=== PATIENT | female | born 1975 | race Caucasian/White ===

== ENCOUNTER 2017-09-11 16:20 | Emergency (ER) | payer OTHER ==
[~2017-09-11] VITALS: Wt 70.5 kg
--- NOTE | 2017-09-11 17:59 | ERD ---
ER Documentation Chief Complaint Chief Complaint lafleur, bodyaches, fever ROS All systems reviewed and are negative except as per history of present illness. Medications Home Meds Active Scripts Azithromycin* (Zithromax*) 250 Mg Tablet, 250 MG PO .HaliePACK DIRECTED, #6 TAB TAKE 500 MG (2 TABS) THE FIRST DAY THEN 250 MG (1 TAB) DAYS 2-5 Prov:BRAN HYDE PA-C 09/11/17 Allergies Allergies: Coded Allergies: No Known Allergy (Unverified , 02/03/14) PMhx/Soc History of Surgery: Yes (,cholesystectomy,appendectomy) Anesthesia Reaction: No Hx Neurological Disorder: No Hx Respiratory Disorders: No Hx Cardiac Disorders: No Hx Psychiatric Problems: No Hx Miscellaneous Medical Probl: No Hx Alcohol Use: No Hx Substance Use: No Hx Tobacco Use: No Smoking Status: Never smoker Physical Exam Vitals Vital Signs Date Time Temp Pulse Resp B/P Pulse Ox O2 Delivery O2 Flow Rate FiO2 09/11/17 19:13 98.8 90 20 142/78 97 Room Air 09/11/17 16:26 99.5 94 20 161/77 98 Physical Exam Const: [] Head: Atraumatic Eyes: Normal Conjunctiva ENT: Normal External Ears, Nose and Mouth. Neck: Full range of motion..~ No meningismus. Resp: Clear to auscultation bilaterally Cardio: Regular rate and rhythm, no murmurs Abd: Soft, non tender, non distended. Normal bowel sounds Skin: No petechiae or rashes Back: No midline or flank tenderness Ext: No cyanosis, or edema Neur: Awake and alert Psych: Normal Mood and Affect Results 24 hrs Laboratory Tests Test 09/11/17 17:36 Bedside Urine pH (LAB) 5.5 Bedside Urine Protein (LAB) Negative Bedside Urine Glucose (UA) Negative Bedside Urine Ketones (LAB) Negative Bedside Urine Blood Negative Bedside Urine Nitrite (LAB) Negative Bedside Urine Leukocyte Esterase (L Negative Current Medications Medications (Trade) Dose Ordered Sig/Troy Route PRN Reason Start Time Stop Time Status Last Admin Dose Admin Ceftriaxone Sodium (Rocephin) 250 mg ONCE ONCE IM 09/11/17 18:00 09/11/17 18:20 DC Azithromycin (Zithromax) 1,000 mg ONCE ONCE PO 09/11/17 18:00 09/11/17 18:20 DC Ranitidine HCl (Zantac) 150 mg ONCE ONCE PO 09/11/17 18:00 09/11/17 18:20 HEIDI JAIN Sep 11, 2017 17:59
[2017-09-11] MEDS ORDERED: AZITHROMYCIN 250 MG TAB PO ONE (18:00)
[2017-09-11] MEDS ORDERED: RANITIDINE 150 MG TAB PO ONE (18:00)
[2017-09-11] MEDS ORDERED: CEFTRIAXONE 250 MG INJ IM ONE (18:00)
--- NOTE | 2017-09-11 18:07 | RADRPT ---
PROCEDURE: Chest x-ray CLINICAL INDICATION: Cough TECHNIQUE: Chest single view COMPARISON: None FINDINGS: The heart is normal in size. The pulmonary vessels are normal in caliber. The lungs are clear. Th e costophrenic angles are sharp. The visualized bony thorax is unremarkable. IMPRESSION: No acute cardiopulmonary disease. RPTAT: HH .Josafat Recinos MD, Date Time Electronically viewed and signed by .Josafat Recinos MD, MD on 09/11/2017 18:06 .W/
[2017-09-11] MEDS ORDERED: AZIT250T94 PO (19:09)
[2017-09-11 19:13] VITALS: BP 142/78; PULSE 90; RESP 20; TEMP 98.8
--- NOTE | 2017-09-11 21:35 | ERD ---
ER Documentation Chief Complaint Chief Complaint lafleur, bodyaches, fever HPI 42-year-old female complaining of fever, body aches, cough, sore throat, headache 2 weeks. Patient states she had documented fevers of 101. Tylenol was taken 7 hours ago. Denies shortness of breath. Denies sick contacts. Denies neck pain or stiffness. Denies vomiting. Denies abdominal pain. ROS All systems reviewed and are negative except as per history of present illness. Medications Home Meds Active Scripts Azithromycin* (Zithromax*) 250 Mg Tablet, 250 MG PO .ZPACK DIRECTED, #6 TAB TAKE 500 MG (2 TABS) THE FIRST DAY THEN 250 MG (1 TAB) DAYS 2-5 Prov:BRAN HYDE PA-C 09/11/17 Allergies Allergies: Coded Allergies: No Known Allergy (Unverified , 02/03/14) PMhx/Soc History of Surgery: Yes (,cholesystectomy,appendectomy) Anesthesia Reaction: No Hx Neurological Disorder: No Hx Respiratory Disorders: No Hx Cardiac Disorders: No Hx Psychiatric Problems: No Hx Miscellaneous Medical Probl: No Hx Alcohol Use: No Hx Substance Use: No Hx Tobacco Use: No Smoking Status: Never smoker Physical Exam Vitals Vital Signs Date Time Temp Pulse Resp B/P Pulse Ox O2 Delivery O2 Flow Rate FiO2 09/11/17 19:13 98.8 90 20 142/78 97 Room Air 09/11/17 16:26 99.5 94 20 161/77 98 Physical Exam GENERAL: The patient is well-appearing, well-nourished, in no acute distress HEENT: Atraumatic. Conjunctivae are pink. Pupils equal, round, and reactive to light. There is no scleral icterus. Tympanic membranes clear bilaterally. Oropharynx clear. No nystagmus or photophobia. NECK: C-spine is soft and supple. There is no meningismus. There is no cervical lymphadenopathy. CHEST: Clear to auscultation bilaterally. There are no rales, wheezes or rhonchi. HEART: Regular rate and rhythm. No murmurs, clicks, rubs or gallops. No S3 or S4. ABDOMEN:Soft, nontender and nondistended. Good bowel sounds. No rebound or guarding. No gross peritonitis. No gross organomegaly or masses. No Rivero sign or McBurney point tenderness. Results 24 hrs Laboratory Tests Test 09/11/17 17:36 Bedside Urine pH (LAB) 5.5 Bedside Urine Protein (LAB) Negative Bedside Urine Glucose (UA) Negative Bedside Urine Ketones (LAB) Negative Bedside Urine Blood Negative Bedside Urine Nitrite (LAB) Negative Bedside Urine Leukocyte Esterase (L Negative Current Medications Medications (Trade) Dose Ordered Sig/Troy Route PRN Reason Start Time Stop Time Status Last Admin Dose Admin Ceftriaxone Sodium (Rocephin) 250 mg ONCE ONCE IM 09/11/17 18:00 09/11/17 18:20 DC Azithromycin (Zithromax) 1,000 mg ONCE ONCE PO 09/11/17 18:00 09/11/17 18:20 DC Ranitidine HCl (Zantac) 150 mg ONCE ONCE PO 09/11/17 18:00 09/11/17 18:20 DC Procedures/MDM DIAGNOSTIC IMAGING REPORT Patient: CEE BOWLING : 1975 Age: 42 Sex: F MR #: [id number] DOS: 09/11/17 1721 Ordering MD: AMAN HYDE PA-C Location: [facility] Room/Bed: PROCEDURE: Chest x-ray CLINICAL INDICATION: Cough TECHNIQUE: Chest single view COMPARISON: None FINDINGS: The heart is normal in size. The pulmonary vessels are normal in caliber. The lungs are clear. The costophrenic angles are sharp. The visualized bony thorax is unremarkable. IMPRESSION: No acute cardiopulmonary disease. MDM: 42-year-old female complaining of fever. A low suspicion for pneumonia. Patient's chest x-ray is within normal limits. I have low suspicion for meningitis or sepsis. Patient does not have nuchal rigidity and is nontoxic- appearing. I have low suspicion for bacterial HEENT infection. Patient's exam is non-concerning. I have low suspicion for acute abdomen. Patient's abdominal exam is within normal limits. I have low suspicion for UTI or pyelonephritis. Exam is non-concerning and urine is within normal limits. Patient likely has viral fever. Patient is recommended to follow up with PMD in 1-2 days for close evaluation. Departure Diagnosis: Primary Impression: URI (upper respiratory infection) Condition: Stable Patient Instructions: Uri, Viral, No Abx (Adult) Additional Instructions: FOLLOW UP WITH YOUR PRIMARY CARE PHYSICIAN [place].Return to this facility if you are not improving as expected. BRAN HYDE PA-C Sep 11, 2017 21:35
== END 2017-09-11 19:13 | disposition home or self-care (01) ==
LOC: FTE 16:20
DX: J06.9 Acute upper respiratory infection, unspecified (principal)
CPT/HCPCS: 71010; 81003; Z7502

== ENCOUNTER 2017-11-05 23:22 | Emergency (ER) | payer OTHER ==
[~2017-11-05] VITALS: Ht 162.6 cm; Wt 71.8 kg
[~2017-11-05 23:22] MED LIST: AZIT250T94 PO
[2017-11-05 23:25] VITALS: Ht 162.6 cm; Wt 71.8 kg
[2017-11-06] MEDS ORDERED: morphine 4 MG/ML VIAL IV STA (00:28)
[2017-11-06] MEDS ORDERED: SOD CHLORIDE 0.9% 1,000 ML IV STA (00:28)
[2017-11-06] MEDS ORDERED: ONDANSETRON 4 MG INJ IV STA (00:28)
[2017-11-06 01:11] LABS: BASOPHILS % 0.2 % (0.0-2.0); EOSINOPHILS # 0.1 10^3/ul (0.0-0.5); EOSINOPHILS % 1.3 % (0.0-7.0); HEMATOCRIT 44.7 % (37.0-47.0); HEMOGLOBIN 14.7 g/dl (12.0-16.0); LYMPHOCYTES # 0.8 10^3/ul (0.8-2.9); LYMPHOCYTES % 8.7 % (15.0-51.0); MEAN CORPUSCULAR HEMOGLOBIN 28.8 pg (29.0-33.0); MEAN CORPUSCULAR HGB CONC 32.9 g/dl (32.0-37.0); MEAN CORPUSCULAR VOLUME 87.6 fl (82.0-101.0); MEAN PLATELET VOLUME 9.4 fl (7.4-10.4); MONOCYTE # 0.5 10^3/ul (0.3-0.9); MONOCYTES % 5.9 % (0.0-11.0); NEUTROPHIL # 7.7 10^3/ul (1.6-7.5); NEUTROPHILS % 83.6 % (39.0-77.0); PLATELET COUNT 209 10^3/UL (140-415); RED CELL DISTRIBUTION WIDTH 13.5 % (11.5-14.5); WHITE BLOOD COUNT 9.2 10^3/ul (4.8-10.8)
[2017-11-06] MEDS ORDERED: HYDROmorphONE 0.5 MG/0.5 ML SYG IV STA (01:16)
--- NOTE | 2017-11-06 01:50 | RADRPT ---
PROCEDURE: Abdominal ultrasound, limited. CLINICAL INDICATION: Abdominal pain. TECHNIQUE: Multiple real-time images were acquired of the patient's right upper abdomen utilizing a high resolution transducer. COMPARISON: None FINDINGS: The liver demonstrates normal echogenicity and size measuring 16.4 cm. There is no focal mass or in trahepatic biliary ductal dilatation. The gallbladder is absent. The common bile duct measures 4.2 mm in maximal dimension. The visualized portions of the pancreas are unremarkable. No free fluid is identified. The right kidney is normal size and echogenicity measuring 10.9 cm. There is no focal renal mass or echogenic calculus identified. There is no obstructive uropathy. IMPRESSION: Status post cholecystectomy. Otherwise unremarkable right upper abdominal ultrasound. .Tyrell Womack MD, Date Time Electronically viewed and signed by .Tyrell Womack MD, MD on 11/06/2017 01:49 .T/
[2017-11-06 02:05] LABS: ALBUMIN 4.7 g/dl (3.3-4.9); ALBUMIN/GLOBULIN RATIO 1.11; BILIRUBIN,INDIRECT 0.5 mg/dl (0-1.1); BILIRUBIN,TOTAL 0.5 mg/dl (0.2-1.3); CALCIUM 9.5 mg/dl (8.4-10.2); CREATININE 0.62 mg/dl (0.44-1.00); POTASSIUM 3.4 mmol/L (3.5-5.1); TOTAL PROTEIN 8.9 g/dl (6.1-8.1)
[2017-11-06 02:51] LABS: ADD UMIC YES
[2017-11-06 02:52] LABS: UR CLARITY CLOUDY (CLEAR); UR COLOR AMBER (YELLOW); UR TOTAL PROTEIN (Dip) 1+ mg/dl (NEGATIVE)
[2017-11-06 02:53] LABS: UR BILIRUBIN (Dip) 1+ mg/dL (NEGATIVE); UR BLOOD (Dip) TRACE mg/dL (NEGATIVE); UR GLUCOSE (Dip) NEGATIVE (NEGATIVE); UR KETONES (Dip) 2+ mg/dL (NEGATIVE); UR LEUKOCYTE ESTERASE (Dip) NEGATIVE Leu/ul (NEGATIVE); UR NITRITE (Dip) NEGATIVE (NEGATIVE); UR UROBILINOGEN (Dip) 0.2 E.U./dL mg/dL (NEGATIVE)
[2017-11-06 02:54] LABS: URINE BLOOD (Dip) POC Trace-intact (NEGATIVE)
[2017-11-06 02:54] LABS: UR AMORPHOUS CRYSTAL MANY /HPF (NONE SEEN); URINE RBCS 0-2 /HPF (0)
[2017-11-06 02:55] LABS: UR SQUAMOUS EPITHELIAL CELL RARE /HPF (FEW)
--- NOTE | 2017-11-06 03:28 | RADRPT ---
PROCEDURE: CT Abdomen and pelvis without contrast. CLINICAL INDICATION: Abdominal pain. TECHNIQUE: CT scan of the abdomen and pelvis was performed on a multi-detector high-resolution CT scanner. Contiguous axial images were obtained from the lung bases to the ischial tuberosities wit hout intravenous contrast. Coronal and sagittal reformatted images were also obtained. Images were reviewed on the PACS workstation. DICOM images are available. One or more of the following dose reduction techniques were used: - Automated exposure control. - Adjustment of the mA and/or kV according to patient size. - Use of iterative reconstruction technique. Exam CTD/vol = 10.75 mGy. Total exam DLP = 614.16 mGy-cm. COMPARISON: None. FINDINGS: Evaluation of the lung bases demonstrates mild bibasilar atelectasis. Abdomen: The liver is normal in size. There is no focal mass or dilatation of the biliary tree. Th e patient is status post cholecystectomy. The spleen, pancreas and bilateral adrenal glands are wit hin normal limits. Bilateral kidneys are normal in size with no contour deforming mass identified. There is no radiopaque renal or ureteral calculus identified. There is no hydronephrosis or hydrou reter. There is no retroperitoneal adenopathy. The abdominal aorta is of normal caliber. There is a small periumbilical hernia containing fat. There is no bowel obstruction or free air. T he appendix is not visualized. There is a single 1.5 cm diverticulum within the cecum. There is no e vidence of diverticulitis. There is no ascites. Pelvis: The bladder is unremarkable. The uterus and adnexa are within normal limits. There is no significant pelvic adenopathy or free fluid. Evaluation of the osseous structures demonstrates no suspicious lytic or blastic lesion. IMPRESSION: No acute abnormality identified within the abdomen and pelvis. Cecal diverticulum without evidence of diverticulitis. Small periumbilical hernia containing fat. Status post cholecystectomy. Mild bibasilar atelectasis. .Tyrell Womack MD, MD Date Time Electronically viewed and signed by .Tyrell Womack MD, MD on 11/06/2017 03:28 .T/
[2017-11-06] MEDS ORDERED: ONDA4TAB14 PO (03:33)
[2017-11-06] MEDS ORDERED: HYDR-906 PO (03:33)
--- NOTE | 2017-11-06 04:14 | ERD ---
ER Documentation Chief Complaint Chief Complaint epigastric pain x 1 day HPI 42 year old female past medical history including cholecystectomy presents complaining of epigastric abdominal pain nausea vomiting for 1 day. She denies any fevers or diarrhea. ROS All systems reviewed and are negative except as per history of present illness. Medications Home Meds Active Scripts Ondansetron (Ondansetron Odt) 4 Mg Tab.rapdis, 4 MG PO Q6H Y for NAUSEA AND/OR VOMITING, #20 TAB Prov:MIKO XIONG PA-C 11/06/17 Hydrocodone/Acetaminophen (Superior 5-325 Tablet) 1 Each Tablet, 1 TAB PO Q6H Y for PAIN, #20 TAB Prov:MIKO XIONG PA-C 11/06/17 Azithromycin* (Zithromax*) 250 Mg Tablet, 250 MG PO .ZPACK DIRECTED, #6 TAB TAKE 500 MG (2 TABS) THE FIRST DAY THEN 250 MG (1 TAB) DAYS 2-5 Prov:BRAN HYDE PA-C 09/11/17 Allergies Allergies: Coded Allergies: No Known Allergy (Unverified , 02/03/14) PMhx/Soc History of Surgery: Yes (Gallstones) Anesthesia Reaction: No Hx Neurological Disorder: No Hx Respiratory Disorders: No Hx Cardiac Disorders: No Hx Psychiatric Problems: No Hx Miscellaneous Medical Probl: No Hx Alcohol Use: No Hx Substance Use: No Hx Tobacco Use: No Smoking Status: Never smoker Physical Exam Vitals Vital Signs Date Time Temp Pulse Resp B/P Pulse Ox O2 Delivery O2 Flow Rate FiO2 11/05/17 23:25 98.3 110 20 122/75 98 Physical Exam GENERAL: well-developed/well-nourished, in no apparent distress, non-toxic appearing HENT: NC/AT, moist mucous membranes EYES: Conjunctiva normal NECK: Supple, no lymphadenopathy PULM: CTA bilaterally, no rales, rhonchi, or wheezing heard CV: Normal S1S2, RRR, good capillary refill GI: Soft, non-distended, tender to palpation epigastric region Normal bowel sounds, no masses or organomegaly felt on exam No gross peritonitis, no bruits Negative Rovsing, negative Rivero, negative McBurney's point, Negative CVAT BACK: No masses EXT: No clubbing, cyanosis, or edema NEURO: Alert and Orientated SKIN: Intact, normal turgor PSYCH: Normal mood and mentation Result Diagram: 11/06/17 0045 11/06/17 0045 Results 24 hrs Laboratory Tests Test 11/06/17 00:45 11/06/17 02:55 White Blood Count 9.210^3/ul Red Blood Count 5.1010^6/ul Hemoglobin 14.7g/dl Hematocrit 44.7% Mean Corpuscular Volume 87.6fl Mean Corpuscular Hemoglobin 28.8pg Mean Corpuscular Hemoglobin Concent 32.9g/dl Red Cell Distribution Width 13.5% Platelet Count 34449^3/UL Mean Platelet Volume 9.4fl Neutrophils % 83.6% Lymphocytes % 8.7% Monocytes % 5.9% Eosinophils % 1.3% Basophils % 0.2% Nucleated Red Blood Cells % 0.0/100WBC Neutrophils # 7.710^3/ul Lymphocytes # 0.810^3/ul Monocytes # 0.510^3/ul Eosinophils # 0.110^3/ul Basophils # 0.010^3/ul Nucleated Red Blood Cells # 0.010^3/ul Urine Color GEOFFREY Urine Clarity CLOUDY Urine pH 5.5 Urine Specific [place] >1.030 Urine Ketones 2+mg/dL Urine Nitrite NEGATIVEmg/dL Urine Bilirubin 1+mg/dL Urine Urobilinogen 0.2 E.U./dLmg/dL Urine Leukocyte Esterase NEGATIVELeu/ul Urine Microscopic RBC 0-2/HPF Urine Microscopic WBC 0-2/HPF Urine Squamous Epithelial Cells RARE/HPF Urine Amorphous Crystals MANY/HPF Urine Hemoglobin TRACEmg/dL Urine Glucose NEGATIVEmg/dL Urine Total Protein 1+mg/dl Sodium Level 142mmol/L Potassium Level 3.4mmol/L Chloride Level 104mmol/L Carbon Dioxide Level 22mmol/L Anion Gap 19 Blood Urea Nitrogen 7mg/dl Creatinine 0.62mg/dl Glucose Level 120mg/dl Calcium Level 9.5mg/dl Total Bilirubin 0.5mg/dl Direct Bilirubin 0.00mg/dl Indirect Bilirubin 0.5mg/dl Aspartate Amino Transf (AST/SGOT) 28IU/L Alanine Aminotransferase (ALT/SGPT) 38IU/L Alkaline Phosphatase 78IU/L Total Protein 8.9g/dl Albumin 4.7g/dl Globulin 4.20g/dl Albumin/Globulin Ratio 1.11 Lipase 199U/L Bedside Urine pH (LAB) 6.0 Bedside Urine Protein (LAB) Negative Bedside Urine Glucose (UA) Negative Bedside Urine Ketones (LAB) 4+ Bedside Urine Blood Trace-intact Bedside Urine Nitrite (LAB) Negative Bedside Urine Leukocyte Esterase (L Trace Current Medications Medications (Trade) Dose Ordered Sig/Troy Route PRN Reason Start Time Stop Time Status Last Admin Dose Admin Sodium Chloride (NS) 1,000 ml @ 1,000 mls/hr Q1H STAT IV 11/06/17 00:28 11/06/17 01:27 DC 11/06/17 00:43 Morphine Sulfate (morphine) 4 mg ONCE STAT IV 11/06/17 00:28 11/06/17 00:30 DC 11/06/17 00:43 Ondansetron HCl (Zofran Inj) 4 mg ONCE STAT IV 11/06/17 00:28 11/06/17 00:30 DC 11/06/17 00:43 Hydromorphone HCl (Dilaudid) 0.5 mg ONCE STAT IV 11/06/17 01:16 11/06/17 01:17 DC 11/06/17 01:19 Procedures/MDM This is a 42-year-old female presenting to the emergency department with epigastric abdominal pain, nausea vomiting for the past day. There is no evidence of acute abdominal conditions and patient is stable to discharged home to follow-up with primary care physician. IV access established, patient was given fluids morphine and Zofran and I have reassessed her she feels better. Lab work was drawn. CBC did not show any evidence of leukocytosis or anemia. CMP did not show any evidence of renal, liver, or electrolyte abnormalities. Lipase was normal. UA did not show any evidence of hemoglobin or urinary tract infection. Abdominal ultrasound did not show any bile duct dilation. CT of the abdomen was done and radiologist stated No acute abnormality identified within the abdomen and pelvis. Cecal diverticulum without evidence of diverticulitis. Small periumbilical hernia containing fat. Status post cholecystectomy. Mild bibasilar atelectasis. Anoxic testing was discussed with patient I have given her return precautions and she understands and agrees with plan Departure Diagnosis: Primary Impression: Epigastric pain Additional Impression: Nausea & vomiting Condition: Stable Patient Instructions: Nausea and Vomiting-Adult, Epigastric Pain (Uncertain Cause) Additional Instructions: Visite a rg mdico maana para un EXAMEN.Regrese a estas instalaciones si no se mejora jase esperbamos o jase le dijimos. Alsen toda la medicina lesly y jase se le indic. Regrese a estas instalaciones si no se mejora jase esperbamos o jase le dijimos. MIKO XIONG PA-C Nov 06, 2017 04:14
[2017-11-06 04:26] VITALS: BP 121/70; PULSE 95; RESP 16
== END 2017-11-06 04:27 | disposition home or self-care (01) ==
LOC: FTE 23:22
DX: R10.13 Epigastric pain (principal); R11.2 Nausea with vomiting, unspecified
CPT/HCPCS: 36415; 74176; 76705; 80053; 81001; 83690; 85025; 96374; 96375; J1170; J2270; J2405; J7030; Z7502; 81003